=== PATIENT | male | born 1995 | race African-American/Black ===

== ENCOUNTER 2017-02-26 15:08 | Outpatient (CLI) | payer OTHER ==
[2015-03-04 23:20] VITALS: BP 121/70
--- NOTE | 2017-02-26 19:02 | Diagnostic Imaging Report ---
BESSY PA [facility] [address] [facility] [address] [address] Report Submission Date: Feb 26, 2017 3:30:16 PM CDT Patient Study Name: BRANDY MACIAS Date: Feb 26, 2017 3:10:13 PM CDT Modality Type: CR Gender: M Description: UPPER EXTREMITY : 97 Institution: [facility] Physician: BESSY PA Examination: Plain film hand History: Injury Comparison exams: None available Findings: 3 views the hand demonstrate normal cortical margins. No fracture. No dislocation. No soft tissue abnormality. Impression: No osseous abnormality Electronically signed on Feb 26, 2017 3:30:16 PM CDT by: Obinna INGRAM
== END 2017-02-26 15:10 ==
LOC: RAD 15:08
PROVIDERS: ATTEND Physician Assistant
DX: S69.91XA Unspecified injury of right wrist, hand and finger(s), initial encounter (principal); X58.XXXA Exposure to other specified factors, initial encounter; Y93.9 Activity, unspecified; Y99.9 Unspecified external cause status
CPT/HCPCS: 73130

== ENCOUNTER 2017-08-29 15:26 | Outpatient (CLI) | payer OTHER ==
[2015-03-04 23:20] VITALS: BP 121/70
[2017-08-29 15:52] LABS: MEAN CORPUSCULAR HEMOGLOBIN 29.5 pg (28.0-34.0); MEAN CORPUSCULAR VOLUME 89.2 fl (80.0-100.0)
--- NOTE | 2017-08-29 16:09 | Diagnostic Imaging Report ---
BESSY PA [facility] [address] [facility] [address] [address] Report Submission Date: Aug 29, 2017 4:07:11 PM CREDIT INVESTIGATOR Patient Study Name: BRANDY MACIAS Date: Aug 29, 2017 3:58:01 PM CREDIT INVESTIGATOR Modality Type: CR Gender: M Description: CHEST : 97 Institution: [facility] Physician: BESSY PA Chest PA and lateral views Clinical history: Cough and dyspnea Normal heart shadow and mediastinum. Clear lungs without acute infiltrates or pleural effusion. Normal bony thorax. No pneumothorax. Impression: No active pulmonary pathology. Electronically signed on Aug 29, 2017 4:07:11 PM CREDIT INVESTIGATOR by: Ke INGRAM
[2017-08-29 16:29] LABS: EOSINOPHILS % 1 % (0-7); MONOCYTES % 7 % (0-11); SEGMENTED NEUTROPHILS % 85 % (39-79)
== END 2017-08-29 15:28 ==
LOC: LAB 15:26
PROVIDERS: ATTEND Physician Assistant
DX: R05 Cough (principal)
CPT/HCPCS: 36415; 71020; 85025